=== PATIENT | female | born 1950 | race Caucasian/White ===

== ENCOUNTER 2017-02-23 12:25 | Emergency (ER) | payer MEDICAID ==
--- NOTE | 2017-02-23 12:42 | EDPHY ---
HPI/HX/ROS/PE/MDM Narrative: CHIEF COMPLAINT: M1, paranoia HPI: The patient is a 67 y/o female arriving via EMS on an M1 from [facility] with paranoia for an unspecified amount of time. She has a history of schizophrenia and bipolar disorder, but per EMS staff says she has been off medication for an unknown amount of time. She is concerned the staff at her facility is Satan and stealing her belongings, but the FBI is talking to her and protecting her. She denies suicidal or homicidal ideation. She has no current medical complaints. REVIEW OF SYSTEMS: Aside from elements discussed in the HPI, a comprehensive 10-point review of systems was reviewed and is negative. PMH: schizophrenia, bipolar disorder SOCIAL HISTORY: Lives at [facility]. Unemployed. PHYSICAL EXAM: General:Patient is alert, in no acute distress. ENT:Eyes are normal to inspection. ENT inspection normal. Neck: Normal inspection. Full range of motion. Respiratory:No respiratory distress. Breath sounds normal bilaterally. Cardiovascular: Regular rate and rhythm. Strong peripheral pulses. Normal cap refill. Abdomen:The abdomen is nontender to palpation. There are no peritoneal signs. Back: Normal to inspection. No tenderness to palpation. Skin: Normal color. No rash. Warm and dry. Extremities: 2+ pedal edema with extensive onychomycosis. Full range of motion. Neuro: Oriented x2. Normal motor function. Normal sensory function. (Washington Oliveros) ED Course: Standard psychiatric labs drawn. Patient will be evaluated by mental health specialist once medically clear. 1500: Patient care signed out to patient care pending psychiatric evaluation. ( Washington Oliveros) I assumed care of this patient from Dr. Oliveros at 3:00 p.m.. She underwent psychiatric evaluation this evening. She continues with galen psychosis. She is appropriate for inpatient hospitalization. The mental health acid wash operator noted that her hold might not be valid and a new hold was written and signed by me at 8:20 p.m. on 02/23/2017. Placement is being sought. She was hospitalized at [facility] earlier this month and the mental health acid wash operator will see if she can return there. Her care will be transferred to Dr. Neal at 11:00 p.m.. (Chrissy Rincon) 7:00 a.m.- The patient was stable throughout my shift. She did not require any medications. She is being evaluated for psychiatric placement. She will be signed out to the oncoming provider Dr. Rivera. (Giulia Neal) I assumed care of this patient from Dr. Neal at 7:00 a.m., change of shift. I was notified by EPS that the patient has been accepted at [facility] by Dr. Ortega at 10:00 a.m.. 0700: Assumed patient care from Dr. Neal at shift change. Patient is awaiting transfer. 0950: Reassessed patient. We are awaiting placement. She continues to be delusional on my examination. Patient was accepted at [facility]. Patient's 72 hour mental health hold was deemed invalid by [facility] because it had not been timed and dated. On my examination the patient continues to meet criteria for a mental health hold and she was placed on a 72 hour mental health hold by myself. Patient was discharged to [facility] at 4:00 p.m.. She has remained stable and required no further medications. (Jaylyn Rivera) - Data Points Laboratory Results: Laboratory Results 02/23/17 12:45 02/23/17 12:45 General Time Seen by Provider: 02/23/17 12:35 Initial Vital Signs: Initial Vital Signs Temperature (C) 36.8 C 02/23/17 12:45 Heart Rate 87 02/23/17 12:45 Respiratory Rate 18 02/23/17 12:45 Blood Pressure 107/66 02/23/17 12:45 O2 Sat (%) 92 02/23/17 12:45 O2 Delivery Mode Room Air Allergies/Adverse Reactions: ampicillin Allergy (Verified 02/23/17 12:43) Penicillins Allergy (Verified 02/23/17 12:43) tetracycline Allergy (Verified 02/23/17 12:43) Home Medications: Medication Instructions Recorded Cyanocobalamin 02/23/17 Diltiazem 02/23/17 Docusate Sodium 02/23/17 Haldol 5 MG (*) 02/23/17 Departure - Departure Disposition: Other Psych, Not [place] Clinical Impression: Schizophrenia Qualifiers: Schizophrenia type: other Qualified Code(s): F20.89 - Other schizophrenia Bipolar disorder Qualifiers: Active/Remission status: currently active Current bipolar episode type: mixed Current episode severity: severe Psychotic features: with psychotic features Qualified Code(s): F31.64 - Bipolar disorder, current episode mixed, severe, with psychotic features Condition: Good Referrals: Patient,NotPresent [Unknown] - As per Instructions Report Scribed for: Washington Oliveros Report Scribed by: Bonnie Maurice Date of Report: 02/23/17 Time of Report: 12:42 Physician Review and Approval Statement: Portions of this note were transcribed by an ED scribe. I personally performed the history, physical exam, and medical decision making; and confirm the accuracy of the information in the transcribed note.
[2017-02-23 13:39] LABS: % IMMATURE GRANULYOCYTES 0.6 % (0.0-1.1); ABSOLUTE IMMATURE GRANULOCYTES 0.07 10^3/uL (0.00-0.10); ADD DIFF? NO; ADD MORPH? NO; ADD SCAN? NO; ATYPICAL LYMPHOCYTE FLAG 0 (0-99); FRAGMENT RBC FLAG 10 (0-99); HEMATOCRIT 46.8 % (38.0-47.0); HEMOGLOBIN 15.3 g/dL (12.6-16.3); LEFT SHIFT FLG 10 (0-99); LIPEMIA HEMOLYSIS FLAG 80 (0-99); MEAN CELL HEMOGLOBIN 32.1 pg (27.9-34.1); MEAN CELL HEMOGLOBIN CONCENTR. 32.7 g/dL (32.4-36.7); MEAN CELL VOLUME 98.1 fL (81.5-99.8); MEAN PLATELET VOLUME 9.9 fL (8.7-11.7); PLATELET CLUMPS FLAG 0 (0-99); PLATELET COUNT 315 10^3/uL (150-400); RED BLOOD CELL COUNT 4.77 10^6/uL (4.18-5.33); RED CELL DISTRIBUTION WIDTH 14.6 % (11.5-15.2)
[2017-02-23 13:43] LABS: ANION GAP 8 mEq/L (8-16); CALCIUM 9.7 mg/dL (8.5-10.4); CARBON DIOXIDE 26 mEq/l (22-31); CHLORIDE 104 mEq/L (97-110); ETHANOL SERUM < 10 mg/dL (0-10); GLOMERULAR FILTRATION RATE 55; GLUCOSE 99 mg/dL (70-100); POTASSIUM 3.8 mEq/L (3.5-5.2); SODIUM 138 mEq/L (134-144)
[2017-02-24 15:36] VITALS: BP 170/40; PULSE 92; RESP 18; TEMP 98.6; O2SAT 93
== END 2017-02-24 15:20 ==
LOC: EDUNIT#
DX: F31.64 Bipolar disorder, current episode mixed, severe, with psychotic features (principal)
CPT/HCPCS: 80305; G0480